=== PATIENT | female | born 1960 | race Caucasian/White ===

== ENCOUNTER 2021-06-22 10:25 | Observation (INO) ==
[2021-06-22] MEDS ORDERED: Ondansetron 4 MG/2 ML VIAL IVP ONE (10:48)
[2021-06-22] MEDS ORDERED: 0.9 % Sodium Chloride 1,000 ML IVC ONE ×2 (10:48→14:22)
[2021-06-22 11:19] LABS: Basophils % 0.3 %; Eosinophils % 0.2 %; Hematocrit 40.6 % (35.3-44.9); Hemoglobin 13.6 g/dL (11.5-15.4); Immature Granulocytes % 0.3 % (0-4); Lymphocytes # 1.8 K/mcL (0.6-4.6); Lymphocytes % 31.2 %; Mean Corpuscular HGB Conc 33.5 g/dL (31.6-35.5); Mean Corpuscular Hemoglobin 28.1 pg (28.0-33.3); Mean Corpuscular Volume 83.9 fL (83.0-100.0); Mean Platelet Volume 10.9 fL (9.4-12.4); Monocytes # 0.4 K/mcL (0.0-1.3); Monocytes % 6.2 %; Neutrophils # 3.6 K/mcL (1.6-8.9); Platelet Count 264 K/mcL (140-400); Red Blood Count 4.84 M/mcL (3.82-4.97); Red Cell Distribution Width 12.1 % (11.5-14.5); Segmented Neutrophils % 61.8 %; White Blood Count 5.8 K/mcL (4.3-11.1)
[2021-06-22 11:21] LABS: VBG HCO3 24 mEq/L (21-27); VBG PCO2 35 mmHg (41-51); VBG PH 7.44 pH Units (7.32-7.42); VBG PO2 53 mmHg (25-50)
[2021-06-22] MEDS ORDERED: Insulin Regular, Human 100 UNIT/ML SUBQ ONE (11:46)
[2021-06-22 11:50] LABS: Alanine Aminotransferase 15 Units/L (7-52); Albumin 3.6 g/dL (3.5-5.7); Alkaline Phosphatase 70 Units/L (34-104); Amylase 19 Units/L (29-103); Aspartate Amino Transferase 22 Units/L (13-39); BUN/Creatinine Ratio 23 (6-26); Bilirubin,Direct 0.2 mg/dL (0.0-0.2); Bilirubin,Indirect 0.4 mg/dL (0.0-1.0); Bilirubin,Total 0.6 mg/dL (0.3-1.0); Blood Urea Nitrogen 22 mg/dL (6-20); Calcium 8.8 mg/dL (8.6-10.3); Carbon Dioxide 23 mEq/L (23-29); Chloride 90 mEq/L (98-107); Globulin 3.6 g/dL (2.4-3.5); Glucose 544 mg/dL (70-105); Lipase 12 Units/L (11-82); Osmolality,Calculated 304 (280-300); Potassium 3.7 mEq/L (3.5-5.1); Sodium 133 mEq/L (136-145); Total Protein 7.2 g/dL (6.4-8.9); eGFR For African Americans > 60 (> 60); eGFR For Non-African Americans 59 (> 60)
[2021-06-22] MEDS: 0.9 % Sodium Chloride 1,000 ML IVC SCH (13:16)
[2021-06-22] MEDS ORDERED: Mag Hydrox/Al Hydrox/Simeth 30 ML UDC PO PRN (14:17)
[2021-06-22] MEDS ORDERED: MOM Conc 10 ML UD.LIQ PO PRN (14:17)
[2021-06-22] MEDS ORDERED: Ondansetron 4 MG/2 ML VIAL IVP PRN (14:17)
[2021-06-22] MEDS ORDERED: Naloxone 0.4 MG/ML INJ IVP PRN (14:17)
[2021-06-22] MEDS ORDERED: D5% in Water 1,000 ML IVC PRN (14:19)
[2021-06-22] MEDS ORDERED: Dextrose Gel 15 GM/37.5 ML TUBE PO PRN ×2 (14:19)
[2021-06-22] MEDS ORDERED: *HR* Dextrose 50 % in Water (Syg) 50 ML SYRINGE IVP PRN (14:19)
[2021-06-22] MEDS ORDERED: Benzonatate 100 MG CAPSULE PO PRN (14:21)
[2021-06-22] MEDS ORDERED: Insulin LISPRO 300 UNITS/3 ML VIAL SUBQ ONE (15:12)
[2021-06-22] MEDS: Insulin LISPRO 300 UNITS/3 ML VIAL SUBQ SCH ×2 (16:32→20:38)
[2021-06-22 18:46] LABS: BUN/Creatinine Ratio 24 (6-26); Blood Urea Nitrogen 17 mg/dL (6-20); Calcium 7.7 mg/dL (8.6-10.3); Carbon Dioxide 28 mEq/L (23-29); Chloride 103 mEq/L (98-107); Glucose 113 mg/dL (70-105); Osmolality,Calculated 292 (280-300); Potassium 2.8 mEq/L (3.5-5.1); Sodium 140 mEq/L (136-145); eGFR For African Americans > 60 (> 60); eGFR For Non-African Americans > 60 (> 60)
[2021-06-22] MEDS: Insulin DETEMIR 100 UNIT/ML X5UNITS SUBQ SCH (20:39)
[2021-06-23] MEDS: 0.9 % Sodium Chloride 1,000 ML IVC SCH ×2 (02:02→07:33)
[2021-06-23] MEDS: *HR* Enoxaparin 40 MG/0.4 ML SYRINGE SQ SCH (05:28)
[2021-06-23] MEDS: Acetaminophen 325 MG TABLET PO PRN ×2 (05:35→21:15)
[2021-06-23] MEDS: Insulin LISPRO 300 UNITS/3 ML VIAL SUBQ SCH ×4 (07:50→21:12)
[2021-06-23 08:44] LABS: Basophils % 0.2 %; Eosinophils % 0.3 %; Hematocrit 32.3 % (35.3-44.9); Hemoglobin 10.9 g/dL (11.5-15.4); Immature Granulocytes % 0.3 % (0-4); Lymphocytes # 2.4 K/mcL (0.6-4.6); Lymphocytes % 36.9 %; Mean Corpuscular HGB Conc 33.7 g/dL (31.6-35.5); Mean Corpuscular Hemoglobin 28.4 pg (28.0-33.3); Mean Corpuscular Volume 84.1 fL (83.0-100.0); Mean Platelet Volume 10.8 fL (9.4-12.4); Monocytes # 0.4 K/mcL (0.0-1.3); Monocytes % 6.6 %; Neutrophils # 3.7 K/mcL (1.6-8.9); Platelet Count 205 K/mcL (140-400); Red Blood Count 3.84 M/mcL (3.82-4.97); Red Cell Distribution Width 12.2 % (11.5-14.5); Segmented Neutrophils % 55.7 %; White Blood Count 6.6 K/mcL (4.3-11.1)
[2021-06-23 08:58] LABS: BUN/Creatinine Ratio 21 (6-26); Blood Urea Nitrogen 12 mg/dL (6-20); Calcium 7.3 mg/dL (8.6-10.3); Carbon Dioxide 25 mEq/L (23-29); Chloride 104 mEq/L (98-107); Glucose 207 mg/dL (70-105); Osmolality,Calculated 292 (280-300); Sodium 138 mEq/L (136-145); eGFR For African Americans > 60 (> 60); eGFR For Non-African Americans > 60 (> 60)
[2021-06-23] MEDS: lisinopriL 20 MG TABLET PO SCH (09:06)
[2021-06-23 10:12] LABS: Estimated Average Glucose 367 mg/dl; Hemoglobin A1C 14.4 %
[2021-06-23] MEDS: Pregabalin 25 MG CAPSULE PO SCH ×2 (13:02→21:15)
[2021-06-23] MEDS: Magnesium Oxide 400 MG TABLET PO SCH (13:03)
[2021-06-23 13:39] LABS: Bilirubin,Urine Negative (Negative); Blood,Urine Negative (Negative); Clarity,Urine Cloudy (Clear); Color,Urine Yellow (Yellow); Glucose,Urine (UA) 500 mg/dL (Normal); Ketones,Urine 15 mg/dL (Negative); Leukocyte Esterase,Urine Negative (Negative); Nitrite,Urine Negative (Negative); Protein,Urine 30 mg/dL (Neg-Trace); Urobilinogen,Urine Normal (Normal)
[2021-06-23 13:49] LABS: Bacteria,Urine Many per hpf (None-Few); Budding Yeast,Urine Many per hpf (None Seen); Squamous Epithelial Cell,Urine Few per hpf (None-Few); WBC,Urine 0-3 per hpf (0-3)
[2021-06-23 18:15] LABS: BUN/Creatinine Ratio 16 (6-26); Blood Urea Nitrogen 11 mg/dL (6-20); Calcium 7.4 mg/dL (8.6-10.3); Carbon Dioxide 24 mEq/L (23-29); Chloride 107 mEq/L (98-107); Glucose 220 mg/dL (70-105); Osmolality,Calculated 294 (280-300); Potassium 3.5 mEq/L (3.5-5.1); Sodium 139 mEq/L (136-145); eGFR For African Americans > 60 (> 60); eGFR For Non-African Americans > 60 (> 60)
[2021-06-23] MEDS: Fluconazole 100 MG TABLET PO SCH (18:44)
[2021-06-23] MEDS: Insulin DETEMIR 100 UNIT/ML X5UNITS SUBQ SCH (21:14)
[2021-06-23] MEDS ORDERED: Ketorolac 30 MG/ML VIAL IVP ONE (23:45)
[2021-06-24] MEDS: *HR* Enoxaparin 40 MG/0.4 ML SYRINGE SQ SCH (05:59)
[2021-06-24 07:50] LABS: Basophils % 0.3 %; Eosinophils % 0.6 %; Hematocrit 31.4 % (35.3-44.9); Hemoglobin 10.3 g/dL (11.5-15.4); Immature Granulocytes % 0.3 % (0-4); Lymphocytes # 2.5 K/mcL (0.6-4.6); Lymphocytes % 37.7 %; Mean Corpuscular HGB Conc 32.8 g/dL (31.6-35.5); Mean Corpuscular Hemoglobin 27.9 pg (28.0-33.3); Mean Corpuscular Volume 85.1 fL (83.0-100.0); Mean Platelet Volume 10.6 fL (9.4-12.4); Monocytes # 0.5 K/mcL (0.0-1.3); Monocytes % 6.7 %; Neutrophils # 3.7 K/mcL (1.6-8.9); Platelet Count 206 K/mcL (140-400); Red Blood Count 3.69 M/mcL (3.82-4.97); Red Cell Distribution Width 12.3 % (11.5-14.5); Segmented Neutrophils % 54.4 %; White Blood Count 6.7 K/mcL (4.3-11.1)
[2021-06-24] MEDS: Magnesium Oxide 400 MG TABLET PO SCH (09:16)
[2021-06-24] MEDS: Pregabalin 25 MG CAPSULE PO SCH ×2 (09:17→21:32)
[2021-06-24] MEDS: lisinopriL 20 MG TABLET PO SCH (09:17)
[2021-06-24] MEDS: Fluconazole 100 MG TABLET PO SCH (09:19)
[2021-06-24] MEDS: Insulin LISPRO 300 UNITS/3 ML VIAL SUBQ SCH ×4 (10:22→21:33)
[2021-06-24 10:49] LABS: BUN/Creatinine Ratio 19 (6-26); Blood Urea Nitrogen 13 mg/dL (6-20); Calcium 7.7 mg/dL (8.6-10.3); Carbon Dioxide 29 mEq/L (23-29); Chloride 108 mEq/L (98-107); Glucose 80 mg/dL (70-105); Osmolality,Calculated 289 (280-300); Potassium 3.8 mEq/L (3.5-5.1); Sodium 140 mEq/L (136-145); eGFR For African Americans > 60 (> 60); eGFR For Non-African Americans > 60 (> 60)
[2021-06-24] MEDS ORDERED: Dextrose Gel 15 GM/37.5 ML TUBE PO PRN ×2 (19:16)
[2021-06-24] MEDS ORDERED: D5% in Water 1,000 ML IVC PRN (19:16)
[2021-06-24] MEDS ORDERED: *HR* Dextrose 50 % in Water (Syg) 50 ML SYRINGE IVP PRN (19:16)
[2021-06-24] MEDS ORDERED: Insulin DETEMIR 100 UNIT/ML X5UNITS SUBQ SCH (21:00)
[2021-06-24] MEDS: Acetaminophen 325 MG TABLET PO PRN (21:32)
[2021-06-25] MEDS: Acetaminophen 325 MG TABLET PO PRN (03:28)
[2021-06-25] MEDS: *HR* Enoxaparin 40 MG/0.4 ML SYRINGE SQ SCH (04:19)
[2021-06-25] MEDS ORDERED: Insulin LISPRO 300 UNITS/3 ML VIAL SUBQ SCH (07:30)
[2021-06-25 07:40] LABS: Basophils % 0.3 %; Eosinophils % 0.6 %; Hematocrit 32.5 % (35.3-44.9); Hemoglobin 10.7 g/dL (11.5-15.4); Immature Granulocytes % 0.6 % (0-4); Lymphocytes # 2.5 K/mcL (0.6-4.6); Lymphocytes % 38.1 %; Mean Corpuscular HGB Conc 32.9 g/dL (31.6-35.5); Mean Corpuscular Volume 85.1 fL (83.0-100.0); Mean Platelet Volume 10.5 fL (9.4-12.4); Monocytes # 0.6 K/mcL (0.0-1.3); Monocytes % 8.3 %; Neutrophils # 3.4 K/mcL (1.6-8.9); Platelet Count 219 K/mcL (140-400); Red Blood Count 3.82 M/mcL (3.82-4.97); Red Cell Distribution Width 12.3 % (11.5-14.5); Segmented Neutrophils % 52.1 %; White Blood Count 6.6 K/mcL (4.3-11.1)
[2021-06-25 07:55] LABS: BUN/Creatinine Ratio 20 (6-26); Blood Urea Nitrogen 13 mg/dL (6-20); Calcium 7.9 mg/dL (8.6-10.3); Carbon Dioxide 28 mEq/L (23-29); Chloride 106 mEq/L (98-107); Glucose 158 mg/dL (70-105); Magnesium 1.3 mg/dL (1.6-2.6); Osmolality,Calculated 287 (280-300); Sodium 137 mEq/L (136-145); eGFR For African Americans > 60 (> 60); eGFR For Non-African Americans > 60 (> 60)
[2021-06-25 08:11] VITALS: BP 120/71; PULSE 73; RESP 18; TEMP 98.2; O2SAT 98
[2021-06-25] MEDS: Pregabalin 25 MG CAPSULE PO SCH (08:46)
[2021-06-25] MEDS: Magnesium Oxide 400 MG TABLET PO SCH (08:46)
[2021-06-25] MEDS: lisinopriL 20 MG TABLET PO SCH (08:46)
[2021-06-25] MEDS: Fluconazole 100 MG TABLET PO SCH (08:46)
== END 2021-06-25 11:42 | disposition home or self-care (01) ==
LOC: INPPIK 10:25 → EMEROOPIK 10:25 → INPPIK 14:56
PROVIDERS: ADMIT Registered Nurse Emergency; ATTEND Registered Nurse Emergency

== ENCOUNTER 2021-08-08 17:49 | Inpatient (IN) ==
[2021-08-08] MEDS ORDERED: D5% in Water 1,000 ML IVC PRN (18:09)
[2021-08-08] MEDS ORDERED: Dextrose 4 GM Chewable Tablets PO PRN ×2 (18:09)
[2021-08-08] MEDS ORDERED: *HR* Dextrose 50 % in Water (Syg) 50 ML SYRINGE IVP PRN (18:09)
[2021-08-08] MEDS ORDERED: Insulin DETEMIR 100 UNIT/ML X5UNITS SUBQ SCH (21:00)
[2021-08-08] MEDS ORDERED: Insulin DETEMIR 100 UNIT/ML per UNIT SUBQ ONE (21:45)
[2021-08-08] MEDS: *HR* HYDROcodone/Acet 5/325 mg TABLET PO PRN (21:51)
[2021-08-09] MEDS ORDERED: *HR* OxyCODONE Immed Rel 5 MG TABLET PO ONE (00:05)
[2021-08-09] MEDS: Ondansetron 4 MG/2 ML VIAL IVP PRN (06:13)
[2021-08-09 08:18] LABS: Basophils # 0.1 K/mcL (0.0-0.2); Basophils % 0.8 %; Eosinophils # 0.1 K/mcL (0.0-0.6); Eosinophils % 0.9 %; Hematocrit 27.6 % (35.3-44.9); Hemoglobin 8.5 g/dL (11.5-15.4); Immature Granulocytes % 0.5 % (0-4); Lymphocytes # 1.7 K/mcL (0.6-4.6); Lymphocytes % 25.2 %; Mean Corpuscular HGB Conc 30.8 g/dL (31.6-35.5); Mean Corpuscular Hemoglobin 27.4 pg (28.0-33.3); Monocytes # 0.4 K/mcL (0.0-1.3); Monocytes % 6.2 %; Neutrophils # 4.4 K/mcL (1.6-8.9); Platelet Count 432 K/mcL (140-400); Red Cell Distribution Width 16.9 % (11.5-14.5); Segmented Neutrophils % 66.4 %; White Blood Count 6.6 K/mcL (4.3-11.1)
[2021-08-09 08:43] LABS: INR 1.2; Prothrombin Time 13.8 Seconds (9.4-12.1)
[2021-08-09] MEDS: *HR* HYDROcodone/Acet 5/325 mg TABLET PO PRN ×2 (08:45→17:25)
[2021-08-09] MEDS ORDERED: *HR* Metformin 500 MG TABLET PO SCH (09:00)
[2021-08-09] MEDS: carvediloL 6.25 MG TABLET PO SCH ×2 (09:24→17:24)
[2021-08-09] MEDS: Insulin LISPRO 300 UNITS/3 ML VIAL SUBQ SCH ×3 (09:28→16:16)
[2021-08-09] MEDS: lisinopriL 10 MG TABLET PO SCH (09:30)
[2021-08-09] MEDS: Aspirin 81 MG TAB.CHEW PO SCH (09:30)
[2021-08-09] MEDS: Insulin DETEMIR 100 UNIT/ML X5UNITS SUBQ SCH ×2 (09:31→20:47)
[2021-08-09] MEDS: *HR* OxyCODONE Immed Rel 5 MG TABLET PO PRN ×2 (12:16→20:47)
[2021-08-09 13:38] LABS: BUN/Creatinine Ratio 23 (6-26); Blood Urea Nitrogen 11 mg/dL (6-20); Calcium 7.8 mg/dL (8.6-10.3); Carbon Dioxide 25 mEq/L (23-29); Chloride 101 mEq/L (98-107); Glucose 216 mg/dL (70-105); Osmolality,Calculated 290 (280-300); Potassium 3.7 mEq/L (3.5-5.1); Sodium 137 mEq/L (136-145); eGFR For African Americans > 60 (> 60); eGFR For Non-African Americans > 60 (> 60)
[2021-08-09] MEDS: *HR* Heparin 5,000 UNIT/ML VIAL SQ SCH (17:24)
[2021-08-09] MEDS: *HR* Metformin 500 MG TABLET PO SCH (17:24)
[2021-08-09] MEDS: Gabapentin 100 MG CAPSULE PO SCH (20:46)
[2021-08-09] MEDS ORDERED: Gabapentin 100 MG CAPSULE PO SCH (21:00)
[2021-08-10] MEDS: Ondansetron 4 MG/2 ML VIAL IVP PRN (03:47)
[2021-08-10] MEDS: *HR* HYDROcodone/Acet 5/325 mg TABLET PO PRN ×3 (05:08→20:50)
[2021-08-10] MEDS: *HR* Heparin 5,000 UNIT/ML VIAL SQ SCH ×2 (05:10→16:59)
[2021-08-10] MEDS: Gabapentin 100 MG CAPSULE PO SCH ×2 (08:21→20:09)
[2021-08-10] MEDS: Aspirin 81 MG TAB.CHEW PO SCH (08:21)
[2021-08-10] MEDS: lisinopriL 10 MG TABLET PO SCH (08:21)
[2021-08-10] MEDS: *HR* Metformin 500 MG TABLET PO SCH ×2 (08:21→16:59)
[2021-08-10] MEDS: carvediloL 6.25 MG TABLET PO SCH ×2 (08:21→16:59)
[2021-08-10] MEDS: Insulin LISPRO 300 UNITS/3 ML VIAL SUBQ SCH ×3 (08:22→17:00)
[2021-08-10 09:19] LABS: % Iron Saturation 18 % (15-50); Iron 33 mcg/dL (50-170); Transferrin 131 mg/dL (203-362)
[2021-08-10 09:39] LABS: Ferritin 356 ng/mL (10-120)
[2021-08-10] MEDS: Insulin DETEMIR 100 UNIT/ML X5UNITS SUBQ SCH ×2 (10:04→20:10)
[2021-08-10] MEDS: *HR* OxyCODONE Immed Rel 5 MG TABLET PO PRN (17:11)
[2021-08-11] MEDS: *HR* Heparin 5,000 UNIT/ML VIAL SQ SCH ×2 (05:12→17:10)
[2021-08-11] MEDS: *HR* OxyCODONE Immed Rel 5 MG TABLET PO PRN ×2 (05:12→20:26)
[2021-08-11] MEDS: Insulin DETEMIR 100 UNIT/ML X5UNITS SUBQ SCH ×2 (07:52→20:25)
[2021-08-11] MEDS: Insulin LISPRO 300 UNITS/3 ML VIAL SUBQ SCH ×3 (07:52→17:11)
[2021-08-11] MEDS: carvediloL 6.25 MG TABLET PO SCH ×2 (07:53→17:09)
[2021-08-11] MEDS: Gabapentin 100 MG CAPSULE PO SCH ×3 (07:54→20:25)
[2021-08-11] MEDS: lisinopriL 10 MG TABLET PO SCH (07:54)
[2021-08-11] MEDS: Aspirin 81 MG TAB.CHEW PO SCH (07:54)
[2021-08-11] MEDS: *HR* Metformin 500 MG TABLET PO SCH ×2 (07:54→17:10)
[2021-08-11] MEDS: *HR* HYDROcodone/Acet 5/325 mg TABLET PO PRN ×2 (07:56→22:32)
[2021-08-12] MEDS: *HR* OxyCODONE Immed Rel 5 MG TABLET PO PRN ×3 (02:28→20:35)
[2021-08-12] MEDS: *HR* HYDROcodone/Acet 5/325 mg TABLET PO PRN (05:44)
[2021-08-12] MEDS: *HR* Heparin 5,000 UNIT/ML VIAL SQ SCH ×2 (05:44→17:03)
[2021-08-12 08:40] LABS: Hematocrit 28.1 % (35.3-44.9); Hemoglobin 8.5 g/dL (11.5-15.4); Mean Corpuscular HGB Conc 30.2 g/dL (31.6-35.5); Mean Corpuscular Hemoglobin 27.9 pg (28.0-33.3); Mean Corpuscular Volume 92.1 fL (83.0-100.0); Mean Platelet Volume 8.8 fL (9.4-12.4); Platelet Count 361 K/mcL (140-400); Red Blood Count 3.05 M/mcL (3.82-4.97); Red Cell Distribution Width 18.2 % (11.5-14.5)
[2021-08-12] MEDS: Gabapentin 100 MG CAPSULE PO SCH ×3 (08:51→20:35)
[2021-08-12] MEDS: *HR* Metformin 500 MG TABLET PO SCH ×2 (08:51→17:03)
[2021-08-12] MEDS: Insulin LISPRO 300 UNITS/3 ML VIAL SUBQ SCH ×3 (08:51→16:44)
[2021-08-12] MEDS: Aspirin 81 MG TAB.CHEW PO SCH (08:51)
[2021-08-12] MEDS: carvediloL 6.25 MG TABLET PO SCH ×2 (08:51→17:03)
[2021-08-12] MEDS: lisinopriL 10 MG TABLET PO SCH (08:51)
[2021-08-12] MEDS: Insulin DETEMIR 100 UNIT/ML X5UNITS SUBQ SCH ×2 (09:04→20:38)
[2021-08-12 09:15] LABS: BUN/Creatinine Ratio 25 (6-26); Blood Urea Nitrogen 12 mg/dL (6-20); Calcium 8.1 mg/dL (8.6-10.3); Carbon Dioxide 34 mEq/L (23-29); Chloride 101 mEq/L (98-107); Glucose 118 mg/dL (70-105); Osmolality,Calculated 287 (280-300); Potassium 4.2 mEq/L (3.5-5.1); Sodium 138 mEq/L (136-145); eGFR For African Americans > 60 (> 60); eGFR For Non-African Americans > 60 (> 60)
[2021-08-12] MEDS: Sennosides/Docusate Sodium TABLET PO SCH (20:35)
[2021-08-13] MEDS: Ondansetron 4 MG/2 ML VIAL IVP PRN ×2 (04:51→17:20)
[2021-08-13] MEDS: *HR* Heparin 5,000 UNIT/ML VIAL SQ SCH ×2 (05:41→17:19)
[2021-08-13] MEDS: Insulin LISPRO 300 UNITS/3 ML VIAL SUBQ SCH ×3 (07:54→17:20)
[2021-08-13] MEDS: Sennosides/Docusate Sodium TABLET PO SCH ×2 (07:55→21:14)
[2021-08-13] MEDS: lisinopriL 10 MG TABLET PO SCH (07:55)
[2021-08-13] MEDS: *HR* Metformin 500 MG TABLET PO SCH ×2 (07:56→17:24)
[2021-08-13] MEDS: Gabapentin 100 MG CAPSULE PO SCH ×4 (07:56→22:56)
[2021-08-13] MEDS: carvediloL 6.25 MG TABLET PO SCH ×2 (07:56→17:25)
[2021-08-13] MEDS: Aspirin 81 MG TAB.CHEW PO SCH (07:56)
[2021-08-13] MEDS: *HR* HYDROcodone/Acet 5/325 mg TABLET PO PRN ×2 (08:03→22:55)
[2021-08-13] MEDS: Insulin DETEMIR 100 UNIT/ML X5UNITS SUBQ SCH (09:40)
[2021-08-13] MEDS ORDERED: Furosemide 20 MG TABLET PO ONE (14:11)
[2021-08-13] MEDS ORDERED: Isovue-370 500 ML BOTTLE IVP ONE (17:46)
[2021-08-13 18:22] LABS: ABG Base Excess 5 mEq/L (-2 to 3); ABG HCO3 30 mEq/L (21-27); ABG Oxygen Saturation 91 % (95-98); ABG PCO2 44 mmHg (35-45); ABG PH 7.43 pH Units (7.32-7.45); ABG PO2 58 mmHg (85-104); ABG TCO2 31 mEq/L (20-26)
[2021-08-13] MEDS ORDERED: *HR* Heparin 5,000 UNIT/ML VIAL IVP PRN ×2 (19:59)
[2021-08-13] MEDS ORDERED: *HR* Heparin 5,000 UNIT/ML VIAL IVP ONE (19:59)
[2021-08-13] MEDS: Heparin 25,000UNIT/250ML 1/2NS 25,000 UNIT/250 ML IV.SOLN IVC SCH (21:00)
[2021-08-13 21:06] LABS: Hematocrit 28.2 % (35.3-44.9); Hemoglobin 8.4 g/dL (11.5-15.4); Mean Corpuscular HGB Conc 29.8 g/dL (31.6-35.5); Mean Corpuscular Hemoglobin 27.1 pg (28.0-33.3); Platelet Count 351 K/mcL (140-400); White Blood Count 6.3 K/mcL (4.3-11.1)
[2021-08-13 21:13] LABS: INR 1.1; Prothrombin Time 12.3 Seconds (9.4-12.1)
[2021-08-13 21:25] LABS: Heparin anti-factor XA UFH < 0.04 IU/mL (0.30-0.70)
[2021-08-14] MEDS: *HR* Heparin 5,000 UNIT/ML VIAL SQ SCH (03:49)
[2021-08-14] MEDS: *HR* HYDROcodone/Acet 5/325 mg TABLET PO PRN ×2 (05:10→20:12)
[2021-08-14] MEDS: Insulin LISPRO 300 UNITS/3 ML VIAL SUBQ SCH ×3 (08:50→16:38)
[2021-08-14] MEDS: Aspirin 81 MG TAB.CHEW PO SCH (08:51)
[2021-08-14] MEDS: carvediloL 6.25 MG TABLET PO SCH ×2 (08:51→16:55)
[2021-08-14] MEDS: lisinopriL 10 MG TABLET PO SCH (08:52)
[2021-08-14] MEDS: Insulin DETEMIR 100 UNIT/ML X5UNITS SUBQ SCH (08:52)
[2021-08-14] MEDS: Sennosides/Docusate Sodium TABLET PO SCH ×2 (08:52→20:12)
[2021-08-14] MEDS: Gabapentin 100 MG CAPSULE PO SCH ×3 (08:52→20:12)
[2021-08-14 09:48] LABS: Hematocrit 27.1 % (35.3-44.9); Mean Corpuscular HGB Conc 29.5 g/dL (31.6-35.5); Mean Corpuscular Hemoglobin 27.2 pg (28.0-33.3); Mean Corpuscular Volume 92.2 fL (83.0-100.0); Mean Platelet Volume 9.4 fL (9.4-12.4); Platelet Count 344 K/mcL (140-400); Red Blood Count 2.94 M/mcL (3.82-4.97); Red Cell Distribution Width 18.1 % (11.5-14.5); White Blood Count 6.8 K/mcL (4.3-11.1)
[2021-08-14] MEDS: Ondansetron 4 MG/2 ML VIAL IVP PRN (14:26)
[2021-08-14] MEDS: Heparin 25,000UNIT/250ML 1/2NS 25,000 UNIT/250 ML IV.SOLN IVC SCH (22:04)
[2021-08-15 04:12] LABS: Mean Corpuscular HGB Conc 29.6 g/dL (31.6-35.5); Mean Corpuscular Hemoglobin 27.6 pg (28.0-33.3); Mean Corpuscular Volume 93.1 fL (83.0-100.0); Mean Platelet Volume 9.2 fL (9.4-12.4); Platelet Count 358 K/mcL (140-400); Red Cell Distribution Width 18.2 % (11.5-14.5); White Blood Count 5.2 K/mcL (4.3-11.1)
[2021-08-15] MEDS: lisinopriL 10 MG TABLET PO SCH (08:17)
[2021-08-15] MEDS: Sennosides/Docusate Sodium TABLET PO SCH ×2 (08:17→20:41)
[2021-08-15] MEDS: Aspirin 81 MG TAB.CHEW PO SCH (08:17)
[2021-08-15] MEDS: Insulin LISPRO 300 UNITS/3 ML VIAL SUBQ SCH ×3 (08:18→17:13)
[2021-08-15] MEDS: carvediloL 6.25 MG TABLET PO SCH ×2 (08:18→17:13)
[2021-08-15] MEDS: Gabapentin 100 MG CAPSULE PO SCH ×3 (08:18→20:41)
[2021-08-15] MEDS: Insulin DETEMIR 100 UNIT/ML X5UNITS SUBQ SCH (08:19)
[2021-08-15] MEDS: *HR* HYDROcodone/Acet 5/325 mg TABLET PO PRN (14:15)
[2021-08-15] MEDS: *HR* LORazepam 0.5 MG TABLET PO PRN ×2 (15:16→20:41)
[2021-08-15] MEDS: Apixaban 5 MG TABLET PO SCH (20:41)
[2021-08-15] MEDS: Heparin 25,000UNIT/250ML 1/2NS 25,000 UNIT/250 ML IV.SOLN IVC SCH (20:57)
[2021-08-16] MEDS ORDERED: Morphine Sulfate 2 MG/ML SYRINGE IVP ONE (03:00)
[2021-08-16 06:25] LABS: Hematocrit 28.5 % (35.3-44.9); Hemoglobin 8.4 g/dL (11.5-15.4); Mean Corpuscular HGB Conc 29.5 g/dL (31.6-35.5); Mean Corpuscular Hemoglobin 27.9 pg (28.0-33.3); Mean Corpuscular Volume 94.7 fL (83.0-100.0); Mean Platelet Volume 9.3 fL (9.4-12.4); Platelet Count 403 K/mcL (140-400); Red Blood Count 3.01 M/mcL (3.82-4.97); White Blood Count 7.4 K/mcL (4.3-11.1)
[2021-08-16] MEDS: *HR* LORazepam 0.5 MG TABLET PO PRN ×2 (09:14→18:47)
[2021-08-16] MEDS: Aspirin 81 MG TAB.CHEW PO SCH (09:15)
[2021-08-16] MEDS: Apixaban 5 MG TABLET PO SCH ×2 (09:15→20:48)
[2021-08-16] MEDS: Gabapentin 100 MG CAPSULE PO SCH ×3 (09:15→20:48)
[2021-08-16] MEDS: carvediloL 6.25 MG TABLET PO SCH ×2 (09:16→17:03)
[2021-08-16] MEDS: lisinopriL 10 MG TABLET PO SCH (09:16)
[2021-08-16] MEDS: Sennosides/Docusate Sodium TABLET PO SCH ×2 (09:16→20:48)
[2021-08-16] MEDS: Insulin LISPRO 300 UNITS/3 ML VIAL SUBQ SCH ×3 (09:16→16:47)
[2021-08-16] MEDS: Insulin DETEMIR 100 UNIT/ML X5UNITS SUBQ SCH (10:20)
[2021-08-16 10:55] LABS: Bilirubin,Urine Negative (Negative); Blood,Urine Trace-intact (Negative); Clarity,Urine Clear (Clear); Color,Urine Yellow (Yellow); Glucose,Urine (UA) 100 mg/dL (Normal); Ketones,Urine Negative (Negative); Leukocyte Esterase,Urine Negative (Negative); Nitrite,Urine Negative (Negative); PH,Urine 8.5 pH Units (5.0-8.0); Protein,Urine Negative (Neg-Trace); Specific Gravity,Urine 1.015 (1.010-1.025); Urobilinogen,Urine Normal (Normal)
[2021-08-16 11:46] LABS: RBC,Urine 0-3 per hpf (0-3); Squamous Epithelial Cell,Urine Few per hpf (None-Few); WBC,Urine 0-3 per hpf (0-3)
[2021-08-16] MEDS: *HR* HYDROcodone/Acet 5/325 mg TABLET PO PRN (14:02)
[2021-08-17] MEDS: *HR* LORazepam 0.5 MG TABLET PO PRN (03:31)
[2021-08-17 07:20] LABS: Hematocrit 28.8 % (35.3-44.9); Hemoglobin 8.5 g/dL (11.5-15.4); Mean Corpuscular HGB Conc 29.5 g/dL (31.6-35.5); Mean Corpuscular Hemoglobin 27.4 pg (28.0-33.3); Mean Corpuscular Volume 92.9 fL (83.0-100.0); Mean Platelet Volume 9.3 fL (9.4-12.4); Platelet Count 381 K/mcL (140-400); Red Cell Distribution Width 17.7 % (11.5-14.5); White Blood Count 5.7 K/mcL (4.3-11.1)
[2021-08-17 07:49] LABS: BUN/Creatinine Ratio 21 (6-26); Blood Urea Nitrogen 9 mg/dL (6-20); Calcium 8.4 mg/dL (8.6-10.3); Carbon Dioxide 32 mEq/L (23-29); Chloride 98 mEq/L (98-107); Glucose 153 mg/dL (70-105); Osmolality,Calculated 284 (280-300); Potassium 4.4 mEq/L (3.5-5.1); Sodium 136 mEq/L (136-145); eGFR For African Americans > 60 (> 60); eGFR For Non-African Americans > 60 (> 60)
[2021-08-17] MEDS ORDERED: Furosemide 20 MG/2 ML VIAL IVP ONE (07:57)
[2021-08-17] MEDS: *HR* HYDROcodone/Acet 5/325 mg TABLET PO PRN (08:14)
[2021-08-17] MEDS: Sennosides/Docusate Sodium TABLET PO SCH ×2 (08:15→20:11)
[2021-08-17] MEDS: carvediloL 6.25 MG TABLET PO SCH ×2 (08:15→16:06)
[2021-08-17] MEDS: Apixaban 5 MG TABLET PO SCH ×2 (08:15→20:10)
[2021-08-17] MEDS: Gabapentin 100 MG CAPSULE PO SCH ×3 (08:15→20:10)
[2021-08-17] MEDS: Aspirin 81 MG TAB.CHEW PO SCH (08:15)
[2021-08-17] MEDS: lisinopriL 10 MG TABLET PO SCH (08:15)
[2021-08-17] MEDS: Insulin LISPRO 300 UNITS/3 ML VIAL SUBQ SCH ×3 (09:19→16:10)
[2021-08-17] MEDS: Insulin DETEMIR 100 UNIT/ML X5UNITS SUBQ SCH (09:40)
[2021-08-17 10:46] LABS: Adenovirus Not Detected (Not Detect); Bordetella Pertussis Not Detected (Not Detect); Chlamydophila pneumoniae Not Detected (Not Detect); Coronavirus 229E Not Detected (Not Detect); Coronavirus HKU1 Not Detected (Not Detect); Coronavirus NL63 Not Detected (Not Detect); Coronavirus OC43 Not Detected (Not Detect); Human Metapneumovirus Not Detected (Not Detect); Human Rhinovirus/Enterovirus Not Detected (Not Detect); Influenza A Subtype 2009 H1 Not Detected (Not Detect); Influenza B Not Detected (Not Detect); Mycoplasma pneumoniae Not Detected (Not Detect); Parainfluenza Virus 1 Not Detected (Not Detect); Parainfluenza Virus 2 Not Detected (Not Detect); Parainfluenza Virus 3 Not Detected (Not Detect); Parainfluenza Virus 4 Not Detected (Not Detect); Respiratory Syncytial Virus Not Detected (Not Detect); SARS-CoV-2 Not Detected (Not Detect)
[2021-08-17] MEDS ORDERED: Ipratropium/Albuterol Neb 3 ML IH PRN (14:43)
[2021-08-17] MEDS: Furosemide 20 MG/2 ML VIAL IVP SCH (16:29)
[2021-08-17] MEDS: *HR* OxyCODONE Immed Rel 5 MG TABLET PO PRN (20:11)
[2021-08-18] MEDS: *HR* LORazepam 0.5 MG TABLET PO PRN ×2 (06:49→17:43)
[2021-08-18 07:34] LABS: Basophils % 0.8 %; Eosinophils # 0.2 K/mcL (0.0-0.6); Eosinophils % 3.2 %; Hematocrit 29.2 % (35.3-44.9); Hemoglobin 8.8 g/dL (11.5-15.4); Immature Granulocytes % 0.4 % (0-4); Lymphocytes # 1.6 K/mcL (0.6-4.6); Lymphocytes % 30.7 %; Mean Corpuscular HGB Conc 30.1 g/dL (31.6-35.5); Mean Corpuscular Hemoglobin 27.5 pg (28.0-33.3); Mean Corpuscular Volume 91.3 fL (83.0-100.0); Mean Platelet Volume 9.4 fL (9.4-12.4); Monocytes # 0.5 K/mcL (0.0-1.3); Monocytes % 8.8 %; Platelet Count 422 K/mcL (140-400); Red Cell Distribution Width 17.3 % (11.5-14.5); Segmented Neutrophils % 56.1 %; White Blood Count 5.3 K/mcL (4.3-11.1)
[2021-08-18] MEDS: carvediloL 6.25 MG TABLET PO SCH ×2 (07:50→16:33)
[2021-08-18] MEDS: Aspirin 81 MG TAB.CHEW PO SCH (07:51)
[2021-08-18] MEDS: Apixaban 5 MG TABLET PO SCH ×2 (07:51→21:31)
[2021-08-18] MEDS: lisinopriL 10 MG TABLET PO SCH (07:51)
[2021-08-18] MEDS: Gabapentin 100 MG CAPSULE PO SCH ×3 (07:51→21:31)
[2021-08-18] MEDS: Sennosides/Docusate Sodium TABLET PO SCH ×2 (07:51→21:31)
[2021-08-18 07:53] LABS: BUN/Creatinine Ratio 18 (6-26); Blood Urea Nitrogen 9 mg/dL (6-20); Calcium 8.4 mg/dL (8.6-10.3); Carbon Dioxide 36 mEq/L (23-29); Chloride 96 mEq/L (98-107); Glucose 197 mg/dL (70-105); Osmolality,Calculated 288 (280-300); Sodium 137 mEq/L (136-145); eGFR For African Americans > 60 (> 60); eGFR For Non-African Americans > 60 (> 60)
[2021-08-18] MEDS: Insulin LISPRO 300 UNITS/3 ML VIAL SUBQ SCH ×3 (08:40→16:33)
[2021-08-18] MEDS: Insulin DETEMIR 100 UNIT/ML X5UNITS SUBQ SCH (08:40)
[2021-08-18] MEDS: Furosemide 20 MG/2 ML VIAL IVP SCH (09:00)
[2021-08-18] MEDS: *HR* HYDROcodone/Acet 5/325 mg TABLET PO PRN (18:30)
[2021-08-19 08:56] LABS: Hematocrit 28.1 % (35.3-44.9); Hemoglobin 8.6 g/dL (11.5-15.4); Mean Corpuscular HGB Conc 30.6 g/dL (31.6-35.5); Mean Corpuscular Hemoglobin 27.8 pg (28.0-33.3); Mean Corpuscular Volume 90.9 fL (83.0-100.0); Mean Platelet Volume 9.1 fL (9.4-12.4); Platelet Count 429 K/mcL (140-400); Red Blood Count 3.09 M/mcL (3.82-4.97); Red Cell Distribution Width 17.2 % (11.5-14.5); White Blood Count 5.4 K/mcL (4.3-11.1)
[2021-08-19] MEDS: Insulin LISPRO 300 UNITS/3 ML VIAL SUBQ SCH ×3 (09:10→16:44)
[2021-08-19 09:11] LABS: BUN/Creatinine Ratio 19 (6-26); Blood Urea Nitrogen 9 mg/dL (6-20); Calcium 8.3 mg/dL (8.6-10.3); Carbon Dioxide 34 mEq/L (23-29); Chloride 97 mEq/L (98-107); Glucose 270 mg/dL (70-105); Osmolality,Calculated 290 (280-300); Potassium 3.8 mEq/L (3.5-5.1); Sodium 136 mEq/L (136-145); eGFR For African Americans > 60 (> 60); eGFR For Non-African Americans > 60 (> 60)
[2021-08-19] MEDS: Insulin DETEMIR 100 UNIT/ML X5UNITS SUBQ SCH (09:11)
[2021-08-19] MEDS: Aspirin 81 MG TAB.CHEW PO SCH (09:12)
[2021-08-19] MEDS: *HR* LORazepam 0.5 MG TABLET PO PRN (09:12)
[2021-08-19] MEDS: lisinopriL 10 MG TABLET PO SCH (09:13)
[2021-08-19] MEDS: Apixaban 5 MG TABLET PO SCH ×2 (09:13→21:47)
[2021-08-19] MEDS: carvediloL 6.25 MG TABLET PO SCH ×2 (09:13→16:44)
[2021-08-19] MEDS: Gabapentin 100 MG CAPSULE PO SCH ×3 (09:13→21:47)
[2021-08-19] MEDS: Sennosides/Docusate Sodium TABLET PO SCH ×2 (09:13→21:48)
[2021-08-19] MEDS: *HR* HYDROcodone/Acet 5/325 mg TABLET PO PRN (16:52)
[2021-08-19] MEDS ORDERED: Perflutren Lipid Microsphere 1.3 ML in 0.9 % Sodium Chloride 8.7 ML IVP PRN (17:08)
[2021-08-19] MEDS: *HR* OxyCODONE Immed Rel 5 MG TABLET PO PRN (21:47)
[2021-08-20] MEDS: lisinopriL 10 MG TABLET PO SCH (08:04)
[2021-08-20] MEDS: carvediloL 6.25 MG TABLET PO SCH ×2 (08:04→17:02)
[2021-08-20] MEDS: Sennosides/Docusate Sodium TABLET PO SCH ×2 (08:04→19:57)
[2021-08-20] MEDS: Gabapentin 100 MG CAPSULE PO SCH ×3 (08:05→19:57)
[2021-08-20] MEDS: Aspirin 81 MG TAB.CHEW PO SCH (08:05)
[2021-08-20] MEDS: Apixaban 5 MG TABLET PO SCH ×2 (08:05→19:57)
[2021-08-20] MEDS: Insulin LISPRO 300 UNITS/3 ML VIAL SUBQ SCH ×3 (08:05→17:01)
[2021-08-20 08:24] LABS: Basophils % 0.5 %; Eosinophils # 0.2 K/mcL (0.0-0.6); Eosinophils % 3.5 %; Hematocrit 28.1 % (35.3-44.9); Hemoglobin 8.4 g/dL (11.5-15.4); Immature Granulocytes % 0.3 % (0-4); Lymphocytes % 32.7 %; Mean Corpuscular HGB Conc 29.9 g/dL (31.6-35.5); Mean Corpuscular Hemoglobin 27.5 pg (28.0-33.3); Mean Corpuscular Volume 92.1 fL (83.0-100.0); Mean Platelet Volume 9.2 fL (9.4-12.4); Monocytes # 0.7 K/mcL (0.0-1.3); Monocytes % 11.5 %; Neutrophils # 3.1 K/mcL (1.6-8.9); Platelet Count 421 K/mcL (140-400); Red Blood Count 3.05 M/mcL (3.82-4.97); Red Cell Distribution Width 17.2 % (11.5-14.5); Segmented Neutrophils % 51.5 %
[2021-08-20] MEDS: Insulin DETEMIR 100 UNIT/ML X5UNITS SUBQ SCH (08:42)
[2021-08-20 09:07] LABS: BUN/Creatinine Ratio 19 (6-26); Blood Urea Nitrogen 9 mg/dL (6-20); Calcium 8.4 mg/dL (8.6-10.3); Carbon Dioxide 31 mEq/L (23-29); Chloride 100 mEq/L (98-107); Glucose 166 mg/dL (70-105); Osmolality,Calculated 288 (280-300); Sodium 138 mEq/L (136-145); eGFR For African Americans > 60 (> 60); eGFR For Non-African Americans > 60 (> 60)
[2021-08-20] MEDS: Budesonide/Formoterol 160/4.5 1 PUFF INH IH SCH ×2 (09:33→22:33)
[2021-08-20] MEDS: *HR* LORazepam 0.5 MG TABLET PO PRN (11:55)
[2021-08-20] MEDS: *HR* HYDROcodone/Acet 5/325 mg TABLET PO PRN (18:43)
[2021-08-21] MEDS: *HR* LORazepam 0.5 MG TABLET PO PRN ×2 (09:02→23:43)
[2021-08-21] MEDS: Gabapentin 100 MG CAPSULE PO SCH ×3 (09:06→19:57)
[2021-08-21] MEDS: Aspirin 81 MG TAB.CHEW PO SCH (09:06)
[2021-08-21] MEDS: carvediloL 6.25 MG TABLET PO SCH ×2 (09:07→18:42)
[2021-08-21] MEDS: Apixaban 5 MG TABLET PO SCH ×2 (09:07→19:56)
[2021-08-21] MEDS: Sennosides/Docusate Sodium TABLET PO SCH ×2 (09:08→19:57)
[2021-08-21] MEDS: lisinopriL 10 MG TABLET PO SCH (09:08)
[2021-08-21] MEDS: Insulin LISPRO 300 UNITS/3 ML VIAL SUBQ SCH ×3 (09:09→16:05)
[2021-08-21] MEDS: Insulin DETEMIR 100 UNIT/ML X5UNITS SUBQ SCH (09:09)
[2021-08-21] MEDS: Loratadine 10 MG TABLET PO SCH (09:40)
[2021-08-21] MEDS: Budesonide/Formoterol 160/4.5 1 PUFF INH IH SCH ×2 (09:46→22:47)
[2021-08-21] MEDS: *HR* OxyCODONE Immed Rel 5 MG TABLET PO PRN ×2 (11:44→23:42)
[2021-08-22] MEDS: Insulin LISPRO 300 UNITS/3 ML VIAL SUBQ SCH ×3 (08:21→16:42)
[2021-08-22] MEDS: Gabapentin 100 MG CAPSULE PO SCH ×3 (08:21→19:34)
[2021-08-22] MEDS: lisinopriL 10 MG TABLET PO SCH (08:22)
[2021-08-22] MEDS: Apixaban 5 MG TABLET PO SCH ×2 (08:22→22:35)
[2021-08-22] MEDS: Aspirin 81 MG TAB.CHEW PO SCH (08:22)
[2021-08-22] MEDS: carvediloL 6.25 MG TABLET PO SCH ×2 (08:22→16:46)
[2021-08-22] MEDS: Loratadine 10 MG TABLET PO SCH (08:23)
[2021-08-22] MEDS: Sennosides/Docusate Sodium TABLET PO SCH ×2 (08:23→19:33)
[2021-08-22] MEDS: Insulin DETEMIR 100 UNIT/ML X5UNITS SUBQ SCH (09:27)
[2021-08-22] MEDS: Budesonide/Formoterol 160/4.5 1 PUFF INH IH SCH ×2 (10:03→22:42)
[2021-08-22] MEDS: *HR* LORazepam 0.5 MG TABLET PO PRN (14:39)
[2021-08-22] MEDS: *HR* OxyCODONE Immed Rel 5 MG TABLET PO PRN (16:40)
[2021-08-22] MEDS: *HR* HYDROcodone/Acet 5/325 mg TABLET PO PRN (19:47)
[2021-08-23] MEDS: Insulin LISPRO 300 UNITS/3 ML VIAL SUBQ SCH ×3 (07:25→16:32)
[2021-08-23] MEDS: Sennosides/Docusate Sodium TABLET PO SCH ×2 (07:26→21:07)
[2021-08-23] MEDS: Apixaban 5 MG TABLET PO SCH ×2 (07:26→21:07)
[2021-08-23] MEDS: Aspirin 81 MG TAB.CHEW PO SCH (07:26)
[2021-08-23] MEDS: Gabapentin 100 MG CAPSULE PO SCH ×3 (07:26→21:07)
[2021-08-23] MEDS: carvediloL 6.25 MG TABLET PO SCH ×2 (07:26→16:32)
[2021-08-23] MEDS: lisinopriL 10 MG TABLET PO SCH (07:27)
[2021-08-23] MEDS: Ondansetron 4 MG/2 ML VIAL IVP PRN ×2 (07:27→21:06)
[2021-08-23] MEDS: Loratadine 10 MG TABLET PO SCH (07:27)
[2021-08-23] MEDS: *HR* HYDROcodone/Acet 5/325 mg TABLET PO PRN ×2 (07:36→16:38)
[2021-08-23] MEDS: Budesonide/Formoterol 160/4.5 1 PUFF INH IH SCH ×2 (08:58→21:31)
[2021-08-23] MEDS: Insulin DETEMIR 100 UNIT/ML X5UNITS SUBQ SCH (09:11)
[2021-08-23] MEDS: *HR* LORazepam 0.5 MG TABLET PO PRN (21:07)
[2021-08-24] MEDS: Budesonide/Formoterol 160/4.5 1 PUFF INH IH SCH ×2 (09:29→22:18)
[2021-08-24] MEDS: lisinopriL 10 MG TABLET PO SCH (10:07)
[2021-08-24] MEDS: Sennosides/Docusate Sodium TABLET PO SCH ×2 (10:08→20:17)
[2021-08-24] MEDS: Gabapentin 100 MG CAPSULE PO SCH ×3 (10:08→20:18)
[2021-08-24] MEDS: Loratadine 10 MG TABLET PO SCH (10:08)
[2021-08-24] MEDS: *HR* HYDROcodone/Acet 5/325 mg TABLET PO PRN ×2 (10:08→20:17)
[2021-08-24] MEDS: Aspirin 81 MG TAB.CHEW PO SCH (10:08)
[2021-08-24] MEDS: carvediloL 6.25 MG TABLET PO SCH ×2 (10:09→16:51)
[2021-08-24] MEDS: Apixaban 5 MG TABLET PO SCH ×2 (10:09→20:18)
[2021-08-24] MEDS: *HR* LORazepam 0.5 MG TABLET PO PRN (10:09)
[2021-08-24] MEDS: Insulin DETEMIR 100 UNIT/ML X5UNITS SUBQ SCH (10:10)
[2021-08-24] MEDS: Insulin LISPRO 300 UNITS/3 ML VIAL SUBQ SCH ×3 (10:11→16:51)
[2021-08-24] MEDS ORDERED: Bisacodyl 10 MG RECTAL SUPPOSITORY RC PRN (23:44)
[2021-08-25] MEDS: Budesonide/Formoterol 160/4.5 1 PUFF INH IH SCH ×2 (09:20→22:11)
[2021-08-25] MEDS: carvediloL 6.25 MG TABLET PO SCH ×2 (09:55→18:04)
[2021-08-25] MEDS: Aspirin 81 MG TAB.CHEW PO SCH (09:55)
[2021-08-25] MEDS: Apixaban 5 MG TABLET PO SCH ×2 (09:55→19:48)
[2021-08-25] MEDS: Sennosides/Docusate Sodium TABLET PO SCH ×2 (09:56→19:49)
[2021-08-25] MEDS: Gabapentin 100 MG CAPSULE PO SCH ×3 (09:56→19:48)
[2021-08-25] MEDS: Insulin DETEMIR 100 UNIT/ML X5UNITS SUBQ SCH (09:56)
[2021-08-25] MEDS: lisinopriL 10 MG TABLET PO SCH (09:56)
[2021-08-25] MEDS: Loratadine 10 MG TABLET PO SCH (09:56)
[2021-08-25] MEDS: Insulin LISPRO 300 UNITS/3 ML VIAL SUBQ SCH ×3 (09:57→18:04)
[2021-08-26] MEDS: Loratadine 10 MG TABLET PO SCH (08:26)
[2021-08-26] MEDS: Gabapentin 100 MG CAPSULE PO SCH ×3 (08:26→21:10)
[2021-08-26] MEDS: lisinopriL 10 MG TABLET PO SCH (08:27)
[2021-08-26] MEDS: Aspirin 81 MG TAB.CHEW PO SCH (08:27)
[2021-08-26] MEDS: Apixaban 5 MG TABLET PO SCH ×2 (08:27→21:09)
[2021-08-26] MEDS: Insulin DETEMIR 100 UNIT/ML X5UNITS SUBQ SCH (08:28)
[2021-08-26] MEDS: carvediloL 6.25 MG TABLET PO SCH ×2 (08:28→17:11)
[2021-08-26 08:29] LABS: Basophils % 0.6 %; Eosinophils # 0.2 K/mcL (0.0-0.6); Eosinophils % 2.9 %; Hematocrit 29.2 % (35.3-44.9); Hemoglobin 8.7 g/dL (11.5-15.4); Immature Granulocytes % 0.4 % (0-4); Lymphocytes % 36.7 %; Mean Corpuscular HGB Conc 29.8 g/dL (31.6-35.5); Mean Corpuscular Hemoglobin 26.9 pg (28.0-33.3); Mean Corpuscular Volume 90.4 fL (83.0-100.0); Mean Platelet Volume 9.2 fL (9.4-12.4); Monocytes # 0.5 K/mcL (0.0-1.3); Monocytes % 8.3 %; Neutrophils # 2.8 K/mcL (1.6-8.9); Platelet Count 524 K/mcL (140-400); Red Blood Count 3.23 M/mcL (3.82-4.97); Red Cell Distribution Width 16.6 % (11.5-14.5); Segmented Neutrophils % 51.1 %; White Blood Count 5.5 K/mcL (4.3-11.1)
[2021-08-26] MEDS: Insulin LISPRO 300 UNITS/3 ML VIAL SUBQ SCH ×3 (08:31→17:13)
[2021-08-26] MEDS: *HR* LORazepam 0.5 MG TABLET PO PRN (08:40)
[2021-08-26] MEDS: *HR* HYDROcodone/Acet 5/325 mg TABLET PO PRN ×2 (08:40→21:15)
[2021-08-26 08:42] LABS: BUN/Creatinine Ratio 18 (6-26); Blood Urea Nitrogen 10 mg/dL (6-20); Calcium 8.4 mg/dL (8.6-10.3); Carbon Dioxide 32 mEq/L (23-29); Chloride 101 mEq/L (98-107); Glucose 242 mg/dL (70-105); Osmolality,Calculated 293 (280-300); Potassium 3.8 mEq/L (3.5-5.1); Sodium 138 mEq/L (136-145); eGFR For African Americans > 60 (> 60); eGFR For Non-African Americans > 60 (> 60)
[2021-08-26] MEDS: Sennosides/Docusate Sodium TABLET PO SCH ×2 (08:44→21:10)
[2021-08-26] MEDS: Budesonide/Formoterol 160/4.5 1 PUFF INH IH SCH ×2 (09:36→21:45)
[2021-08-27] MEDS: carvediloL 6.25 MG TABLET PO SCH (07:39)
[2021-08-27] MEDS: Gabapentin 100 MG CAPSULE PO SCH ×3 (07:39→21:13)
[2021-08-27] MEDS: lisinopriL 10 MG TABLET PO SCH (07:40)
[2021-08-27] MEDS: Apixaban 5 MG TABLET PO SCH ×2 (07:40→21:10)
[2021-08-27] MEDS: Aspirin 81 MG TAB.CHEW PO SCH (07:40)
[2021-08-27] MEDS: Loratadine 10 MG TABLET PO SCH (08:00)
[2021-08-27] MEDS: Insulin LISPRO 300 UNITS/3 ML VIAL SUBQ SCH ×3 (08:18→19:11)
[2021-08-27] MEDS: Sennosides/Docusate Sodium TABLET PO SCH ×2 (08:41→21:09)
[2021-08-27] MEDS: Budesonide/Formoterol 160/4.5 1 PUFF INH IH SCH ×2 (09:54→22:28)
[2021-08-27] MEDS: Insulin DETEMIR 100 UNIT/ML X5UNITS SUBQ SCH (12:07)
[2021-08-27] MEDS: *HR* HYDROcodone/Acet 5/325 mg TABLET PO PRN (21:10)
[2021-08-28] MEDS: Aspirin 81 MG TAB.CHEW PO SCH (08:49)
[2021-08-28] MEDS: Sennosides/Docusate Sodium TABLET PO SCH ×2 (08:50→19:46)
[2021-08-28] MEDS: Apixaban 5 MG TABLET PO SCH ×2 (08:50→19:47)
[2021-08-28] MEDS: Loratadine 10 MG TABLET PO SCH (08:50)
[2021-08-28] MEDS: lisinopriL 10 MG TABLET PO SCH (08:51)
[2021-08-28] MEDS: Insulin DETEMIR 100 UNIT/ML X5UNITS SUBQ SCH (08:51)
[2021-08-28] MEDS: Gabapentin 100 MG CAPSULE PO SCH ×3 (08:51→19:46)
[2021-08-28] MEDS: Insulin LISPRO 300 UNITS/3 ML VIAL SUBQ SCH ×3 (08:52→16:05)
[2021-08-28] MEDS: carvediloL 6.25 MG TABLET PO SCH ×3 (08:54→16:06)
[2021-08-28] MEDS: Budesonide/Formoterol 160/4.5 1 PUFF INH IH SCH ×2 (09:35→22:43)
[2021-08-28] MEDS: *HR* HYDROcodone/Acet 5/325 mg TABLET PO PRN (19:47)
[2021-08-29] MEDS: *HR* HYDROcodone/Acet 5/325 mg TABLET PO PRN ×2 (06:39→19:52)
[2021-08-29] MEDS: Sennosides/Docusate Sodium TABLET PO SCH ×2 (07:59→19:52)
[2021-08-29] MEDS: Aspirin 81 MG TAB.CHEW PO SCH (07:59)
[2021-08-29] MEDS: Insulin LISPRO 300 UNITS/3 ML VIAL SUBQ SCH ×3 (08:00→16:56)
[2021-08-29] MEDS: carvediloL 6.25 MG TABLET PO SCH ×2 (08:00→16:52)
[2021-08-29] MEDS: lisinopriL 10 MG TABLET PO SCH (08:00)
[2021-08-29] MEDS: Apixaban 5 MG TABLET PO SCH ×2 (08:00→19:52)
[2021-08-29] MEDS: Gabapentin 100 MG CAPSULE PO SCH ×3 (08:00→19:53)
[2021-08-29] MEDS: Loratadine 10 MG TABLET PO SCH (08:00)
[2021-08-29] MEDS: Insulin DETEMIR 100 UNIT/ML X5UNITS SUBQ SCH (09:45)
[2021-08-29] MEDS: Budesonide/Formoterol 160/4.5 1 PUFF INH IH SCH ×2 (10:50→20:22)
[2021-08-29] MEDS: *HR* LORazepam 0.5 MG TABLET PO PRN (19:53)
[2021-08-30] MEDS: *HR* HYDROcodone/Acet 5/325 mg TABLET PO PRN ×2 (00:59→21:46)
[2021-08-30] MEDS: Budesonide/Formoterol 160/4.5 1 PUFF INH IH SCH ×2 (08:45→21:24)
[2021-08-30] MEDS: Insulin LISPRO 300 UNITS/3 ML VIAL SUBQ SCH ×3 (08:54→17:15)
[2021-08-30] MEDS: Aspirin 81 MG TAB.CHEW PO SCH (08:55)
[2021-08-30] MEDS: Insulin DETEMIR 100 UNIT/ML X5UNITS SUBQ SCH (08:55)
[2021-08-30] MEDS: lisinopriL 10 MG TABLET PO SCH (08:55)
[2021-08-30] MEDS: Sennosides/Docusate Sodium TABLET PO SCH ×2 (08:55→21:05)
[2021-08-30] MEDS: Gabapentin 100 MG CAPSULE PO SCH ×3 (08:56→21:05)
[2021-08-30] MEDS: Apixaban 5 MG TABLET PO SCH ×2 (08:56→21:04)
[2021-08-30] MEDS: Loratadine 10 MG TABLET PO SCH (08:56)
[2021-08-30] MEDS: carvediloL 6.25 MG TABLET PO SCH ×2 (08:56→17:15)
[2021-08-30 13:07] LABS: Hematocrit 30.6 % (35.3-44.9); Mean Corpuscular HGB Conc 29.4 g/dL (31.6-35.5); Mean Corpuscular Hemoglobin 26.7 pg (28.0-33.3); Mean Corpuscular Volume 90.8 fL (83.0-100.0); Mean Platelet Volume 8.9 fL (9.4-12.4); Platelet Count 502 K/mcL (140-400); Red Blood Count 3.37 M/mcL (3.82-4.97); Red Cell Distribution Width 16.6 % (11.5-14.5); White Blood Count 6.2 K/mcL (4.3-11.1)
[2021-08-30 13:23] LABS: BUN/Creatinine Ratio 29 (6-26); Blood Urea Nitrogen 17 mg/dL (6-20); Calcium 8.7 mg/dL (8.6-10.3); Carbon Dioxide 29 mEq/L (23-29); Chloride 104 mEq/L (98-107); Glucose 238 mg/dL (70-105); Osmolality,Calculated 299 (280-300); Potassium 3.8 mEq/L (3.5-5.1); Sodium 140 mEq/L (136-145); eGFR For African Americans > 60 (> 60); eGFR For Non-African Americans > 60 (> 60)
[2021-08-30] MEDS: *HR* LORazepam 0.5 MG TABLET PO PRN (21:06)
[2021-08-31] MEDS: Budesonide/Formoterol 160/4.5 1 PUFF INH IH SCH ×2 (07:29→22:48)
[2021-08-31] MEDS: Apixaban 5 MG TABLET PO SCH ×2 (07:38→20:28)
[2021-08-31] MEDS: lisinopriL 10 MG TABLET PO SCH (07:39)
[2021-08-31] MEDS: Loratadine 10 MG TABLET PO SCH (07:39)
[2021-08-31] MEDS: Sennosides/Docusate Sodium TABLET PO SCH ×2 (07:39→20:27)
[2021-08-31] MEDS: carvediloL 6.25 MG TABLET PO SCH ×2 (07:39→16:28)
[2021-08-31] MEDS: Insulin LISPRO 300 UNITS/3 ML VIAL SUBQ SCH ×3 (07:39→16:31)
[2021-08-31] MEDS: Aspirin 81 MG TAB.CHEW PO SCH (07:39)
[2021-08-31] MEDS: Insulin DETEMIR 100 UNIT/ML X5UNITS SUBQ SCH (09:01)
[2021-08-31] MEDS: Gabapentin 100 MG CAPSULE PO SCH ×3 (09:01→20:27)
[2021-08-31] MEDS: *HR* HYDROcodone/Acet 5/325 mg TABLET PO PRN ×2 (16:28→22:35)
[2021-09-01] MEDS: Loratadine 10 MG TABLET PO SCH (08:08)
[2021-09-01] MEDS: Apixaban 5 MG TABLET PO SCH ×2 (08:08→20:02)
[2021-09-01] MEDS: lisinopriL 10 MG TABLET PO SCH (08:09)
[2021-09-01] MEDS: carvediloL 6.25 MG TABLET PO SCH ×2 (08:09→17:04)
[2021-09-01] MEDS: Aspirin 81 MG TAB.CHEW PO SCH (08:09)
[2021-09-01] MEDS: Sennosides/Docusate Sodium TABLET PO SCH ×2 (08:09→20:01)
[2021-09-01] MEDS: Gabapentin 100 MG CAPSULE PO SCH ×3 (08:09→20:02)
[2021-09-01] MEDS: Insulin LISPRO 300 UNITS/3 ML VIAL SUBQ SCH ×3 (08:12→16:36)
[2021-09-01] MEDS: Budesonide/Formoterol 160/4.5 1 PUFF INH IH SCH ×2 (08:16→21:08)
[2021-09-01] MEDS: Insulin DETEMIR 100 UNIT/ML X5UNITS SUBQ SCH (10:00)
[2021-09-01 10:27] LABS: Bilirubin,Urine Negative (Negative); Blood,Urine Moderate (Negative); Clarity,Urine Cloudy (Clear); Color,Urine Yellow (Yellow); Glucose,Urine (UA) Normal (Normal); Ketones,Urine Negative (Negative); Leukocyte Esterase,Urine Moderate (Negative); Nitrite,Urine Negative (Negative); Protein,Urine 100 mg/dL (Neg-Trace); Specific Gravity,Urine 1.025 (1.010-1.025); Urobilinogen,Urine Normal (Normal)
[2021-09-01 11:15] LABS: Bacteria,Urine Many per hpf (None-Few); Squamous Epithelial Cell,Urine Few per hpf (None-Few); WBC,Urine TNTC per hpf (0-3)
[2021-09-01] MEDS: cefTRIAXone 2,000 MG in 0.9 % Sodium Chloride Mini Bag 100 ML IVPB SCH (13:20)
[2021-09-01] MEDS: *HR* HYDROcodone/Acet 5/325 mg TABLET PO PRN (20:01)
[2021-09-02 05:35] LABS: Hematocrit 29.3 % (35.3-44.9); Hemoglobin 8.8 g/dL (11.5-15.4); Mean Corpuscular Hemoglobin 26.9 pg (28.0-33.3); Mean Corpuscular Volume 89.6 fL (83.0-100.0); Mean Platelet Volume 8.7 fL (9.4-12.4); Platelet Count 369 K/mcL (140-400); Red Blood Count 3.27 M/mcL (3.82-4.97); Red Cell Distribution Width 16.6 % (11.5-14.5)
[2021-09-02] MEDS: Budesonide/Formoterol 160/4.5 1 PUFF INH IH SCH ×2 (08:14→21:09)
[2021-09-02] MEDS: Gabapentin 100 MG CAPSULE PO SCH ×3 (08:18→20:34)
[2021-09-02] MEDS: Apixaban 5 MG TABLET PO SCH ×2 (08:18→20:35)
[2021-09-02] MEDS: Loratadine 10 MG TABLET PO SCH (08:18)
[2021-09-02] MEDS: Sennosides/Docusate Sodium TABLET PO SCH ×2 (08:18→20:35)
[2021-09-02] MEDS: carvediloL 6.25 MG TABLET PO SCH ×2 (08:19→17:25)
[2021-09-02] MEDS: lisinopriL 10 MG TABLET PO SCH (08:19)
[2021-09-02] MEDS: Aspirin 81 MG TAB.CHEW PO SCH (08:19)
[2021-09-02] MEDS: cefTRIAXone 2,000 MG in 0.9 % Sodium Chloride Mini Bag 100 ML IVPB SCH (08:20)
[2021-09-02] MEDS: Insulin LISPRO 300 UNITS/3 ML VIAL SUBQ SCH ×3 (08:23→17:27)
[2021-09-02] MEDS: Insulin DETEMIR 100 UNIT/ML X5UNITS SUBQ SCH (10:29)
[2021-09-02 11:03] LABS: BUN/Creatinine Ratio 31 (6-26); Blood Urea Nitrogen 15 mg/dL (6-20); Calcium 8.5 mg/dL (8.6-10.3); Carbon Dioxide 27 mEq/L (23-29); Chloride 106 mEq/L (98-107); Glucose 199 mg/dL (70-105); Osmolality,Calculated 296 (280-300); Potassium 3.8 mEq/L (3.5-5.1); Sodium 140 mEq/L (136-145); eGFR For African Americans > 60 (> 60); eGFR For Non-African Americans > 60 (> 60)
[2021-09-02] MEDS: *HR* HYDROcodone/Acet 5/325 mg TABLET PO PRN (20:34)
[2021-09-03] MEDS: *HR* HYDROcodone/Acet 5/325 mg TABLET PO PRN ×2 (06:01→20:05)
[2021-09-03] MEDS: Gabapentin 100 MG CAPSULE PO SCH ×3 (08:53→20:05)
[2021-09-03] MEDS: carvediloL 6.25 MG TABLET PO SCH ×2 (08:53→15:40)
[2021-09-03] MEDS: Aspirin 81 MG TAB.CHEW PO SCH (08:53)
[2021-09-03] MEDS: Loratadine 10 MG TABLET PO SCH (08:53)
[2021-09-03] MEDS: lisinopriL 10 MG TABLET PO SCH (08:53)
[2021-09-03] MEDS: Apixaban 5 MG TABLET PO SCH ×2 (08:53→20:03)
[2021-09-03] MEDS: Insulin DETEMIR 100 UNIT/ML X5UNITS SUBQ SCH ×2 (08:53→20:03)
[2021-09-03] MEDS: cefTRIAXone 2,000 MG in 0.9 % Sodium Chloride Mini Bag 100 ML IVPB SCH (08:54)
[2021-09-03] MEDS: Insulin LISPRO 300 UNITS/3 ML VIAL SUBQ SCH ×3 (08:54→17:01)
[2021-09-03] MEDS: Sennosides/Docusate Sodium TABLET PO SCH ×2 (08:55→20:05)
[2021-09-03] MEDS: Budesonide/Formoterol 160/4.5 1 PUFF INH IH SCH ×2 (09:33→21:58)
[2021-09-04] MEDS: Sennosides/Docusate Sodium TABLET PO SCH ×2 (08:51→19:37)
[2021-09-04] MEDS: Aspirin 81 MG TAB.CHEW PO SCH (08:51)
[2021-09-04] MEDS: Apixaban 5 MG TABLET PO SCH ×2 (08:52→19:37)
[2021-09-04] MEDS: Loratadine 10 MG TABLET PO SCH (08:52)
[2021-09-04] MEDS: Gabapentin 100 MG CAPSULE PO SCH ×3 (08:52→19:36)
[2021-09-04] MEDS: carvediloL 6.25 MG TABLET PO SCH ×2 (08:52→17:33)
[2021-09-04] MEDS: lisinopriL 10 MG TABLET PO SCH (08:52)
[2021-09-04] MEDS: Insulin DETEMIR 100 UNIT/ML X5UNITS SUBQ SCH ×2 (08:53→19:37)
[2021-09-04] MEDS: Insulin LISPRO 300 UNITS/3 ML VIAL SUBQ SCH ×3 (08:53→15:58)
[2021-09-04] MEDS: Nitrofurantoin (BID) 100 MG CAPSULE PO SCH ×2 (08:58→17:34)
[2021-09-04] MEDS: Budesonide/Formoterol 160/4.5 1 PUFF INH IH SCH ×2 (09:36→21:38)
[2021-09-04] MEDS: *HR* HYDROcodone/Acet 5/325 mg TABLET PO PRN (19:36)
[2021-09-05] MEDS: Apixaban 5 MG TABLET PO SCH ×2 (07:42→21:41)
[2021-09-05] MEDS: lisinopriL 10 MG TABLET PO SCH (07:42)
[2021-09-05] MEDS: carvediloL 6.25 MG TABLET PO SCH ×2 (07:42→16:32)
[2021-09-05] MEDS: Loratadine 10 MG TABLET PO SCH (07:42)
[2021-09-05] MEDS: Aspirin 81 MG TAB.CHEW PO SCH (07:42)
[2021-09-05] MEDS: Insulin LISPRO 300 UNITS/3 ML VIAL SUBQ SCH ×3 (07:43→16:33)
[2021-09-05] MEDS: Gabapentin 100 MG CAPSULE PO SCH ×3 (07:43→21:41)
[2021-09-05] MEDS: Nitrofurantoin (BID) 100 MG CAPSULE PO SCH ×2 (07:43→16:33)
[2021-09-05] MEDS: Sennosides/Docusate Sodium TABLET PO SCH ×2 (07:45→21:43)
[2021-09-05] MEDS: Budesonide/Formoterol 160/4.5 1 PUFF INH IH SCH ×2 (08:39→21:32)
[2021-09-05] MEDS: Insulin DETEMIR 100 UNIT/ML X5UNITS SUBQ SCH ×2 (10:18→21:40)
[2021-09-05] MEDS: *HR* HYDROcodone/Acet 5/325 mg TABLET PO PRN (23:31)
[2021-09-06] MEDS: Insulin LISPRO 300 UNITS/3 ML VIAL SUBQ SCH ×3 (07:23→16:09)
[2021-09-06] MEDS: Nitrofurantoin (BID) 100 MG CAPSULE PO SCH ×2 (08:20→16:36)
[2021-09-06] MEDS: Aspirin 81 MG TAB.CHEW PO SCH (08:20)
[2021-09-06] MEDS: Gabapentin 100 MG CAPSULE PO SCH ×3 (08:21→20:50)
[2021-09-06] MEDS: carvediloL 6.25 MG TABLET PO SCH ×2 (08:21→16:36)
[2021-09-06] MEDS: Loratadine 10 MG TABLET PO SCH (08:21)
[2021-09-06] MEDS: Insulin DETEMIR 100 UNIT/ML X5UNITS SUBQ SCH ×2 (08:21→20:50)
[2021-09-06] MEDS: Apixaban 5 MG TABLET PO SCH ×2 (08:21→20:48)
[2021-09-06] MEDS: lisinopriL 10 MG TABLET PO SCH (08:21)
[2021-09-06] MEDS: Sennosides/Docusate Sodium TABLET PO SCH ×2 (08:21→20:48)
[2021-09-06] MEDS: Budesonide/Formoterol 160/4.5 1 PUFF INH IH SCH ×2 (08:53→21:51)
[2021-09-06] MEDS: *HR* HYDROcodone/Acet 5/325 mg TABLET PO PRN (20:49)
[2021-09-07] MEDS: Insulin LISPRO 300 UNITS/3 ML VIAL SUBQ SCH ×3 (07:42→16:24)
[2021-09-07] MEDS: Sennosides/Docusate Sodium TABLET PO SCH ×2 (08:00→20:51)
[2021-09-07] MEDS: lisinopriL 10 MG TABLET PO SCH (08:01)
[2021-09-07] MEDS: Nitrofurantoin (BID) 100 MG CAPSULE PO SCH ×2 (08:01→16:24)
[2021-09-07] MEDS: Loratadine 10 MG TABLET PO SCH (08:01)
[2021-09-07] MEDS: Aspirin 81 MG TAB.CHEW PO SCH (08:01)
[2021-09-07] MEDS: Gabapentin 100 MG CAPSULE PO SCH ×3 (08:01→20:51)
[2021-09-07] MEDS: carvediloL 6.25 MG TABLET PO SCH ×2 (08:01→16:24)
[2021-09-07] MEDS: Apixaban 5 MG TABLET PO SCH ×2 (08:01→20:50)
[2021-09-07] MEDS: Insulin DETEMIR 100 UNIT/ML X5UNITS SUBQ SCH ×2 (08:16→20:51)
[2021-09-07] MEDS: Budesonide/Formoterol 160/4.5 1 PUFF INH IH SCH ×2 (09:36→22:16)
[2021-09-07] MEDS: *HR* HYDROcodone/Acet 5/325 mg TABLET PO PRN (21:02)
[2021-09-08] MEDS: Insulin LISPRO 300 UNITS/3 ML VIAL SUBQ SCH ×3 (07:01→16:31)
[2021-09-08] MEDS: carvediloL 6.25 MG TABLET PO SCH ×2 (07:25→16:23)
[2021-09-08] MEDS: Loratadine 10 MG TABLET PO SCH (07:25)
[2021-09-08] MEDS: Sennosides/Docusate Sodium TABLET PO SCH ×2 (07:25→20:12)
[2021-09-08] MEDS: lisinopriL 10 MG TABLET PO SCH (07:25)
[2021-09-08] MEDS: Nitrofurantoin (BID) 100 MG CAPSULE PO SCH ×2 (07:25→16:22)
[2021-09-08] MEDS: Apixaban 5 MG TABLET PO SCH ×2 (07:25→20:12)
[2021-09-08] MEDS: Aspirin 81 MG TAB.CHEW PO SCH (07:25)
[2021-09-08] MEDS: Gabapentin 100 MG CAPSULE PO SCH ×3 (07:25→20:11)
[2021-09-08] MEDS: Insulin DETEMIR 100 UNIT/ML X5UNITS SUBQ SCH ×2 (08:46→20:13)
[2021-09-08] MEDS: Budesonide/Formoterol 160/4.5 1 PUFF INH IH SCH ×2 (09:23→21:29)
[2021-09-08] MEDS: *HR* HYDROcodone/Acet 5/325 mg TABLET PO PRN (20:12)
[2021-09-09] MEDS: Sennosides/Docusate Sodium TABLET PO SCH ×2 (08:24→21:05)
[2021-09-09] MEDS: lisinopriL 10 MG TABLET PO SCH (08:25)
[2021-09-09] MEDS: Nitrofurantoin (BID) 100 MG CAPSULE PO SCH ×2 (08:25→16:26)
[2021-09-09] MEDS: Aspirin 81 MG TAB.CHEW PO SCH (08:25)
[2021-09-09] MEDS: Gabapentin 100 MG CAPSULE PO SCH ×3 (08:25→21:04)
[2021-09-09] MEDS: Apixaban 5 MG TABLET PO SCH ×2 (08:26→21:04)
[2021-09-09] MEDS: carvediloL 6.25 MG TABLET PO SCH ×2 (08:26→16:26)
[2021-09-09] MEDS: Loratadine 10 MG TABLET PO SCH (08:26)
[2021-09-09] MEDS: Insulin LISPRO 300 UNITS/3 ML VIAL SUBQ SCH ×3 (08:27→16:18)
[2021-09-09] MEDS: Insulin DETEMIR 100 UNIT/ML X5UNITS SUBQ SCH ×2 (09:11→21:05)
[2021-09-09] MEDS: Budesonide/Formoterol 160/4.5 1 PUFF INH IH SCH ×2 (10:11→21:52)
[2021-09-09] MEDS ORDERED: polyethylene glycoL 3350 17 GM POWD.PACK PO PRN (14:03)
[2021-09-09] MEDS: *HR* HYDROcodone/Acet 5/325 mg TABLET PO PRN (21:05)
[2021-09-10 06:55] LABS: Hematocrit 34.5 % (35.3-44.9); Hemoglobin 10.2 g/dL (11.5-15.4); Mean Corpuscular HGB Conc 29.6 g/dL (31.6-35.5); Mean Corpuscular Hemoglobin 26.5 pg (28.0-33.3); Mean Corpuscular Volume 89.6 fL (83.0-100.0); Mean Platelet Volume 8.7 fL (9.4-12.4); Platelet Count 288 K/mcL (140-400); Red Blood Count 3.85 M/mcL (3.82-4.97); Red Cell Distribution Width 16.2 % (11.5-14.5); White Blood Count 5.7 K/mcL (4.3-11.1)
[2021-09-10 07:11] LABS: BUN/Creatinine Ratio 27 (6-26); Blood Urea Nitrogen 15 mg/dL (6-20); Calcium 9.3 mg/dL (8.6-10.3); Carbon Dioxide 30 mEq/L (23-29); Chloride 104 mEq/L (98-107); Glucose 107 mg/dL (70-105); Osmolality,Calculated 291 (280-300); Potassium 4.1 mEq/L (3.5-5.1); Sodium 140 mEq/L (136-145); eGFR For African Americans > 60 (> 60); eGFR For Non-African Americans > 60 (> 60)
[2021-09-10] MEDS: Insulin LISPRO 300 UNITS/3 ML VIAL SUBQ SCH ×3 (07:34→16:58)
[2021-09-10] MEDS: Apixaban 5 MG TABLET PO SCH ×2 (08:38→20:40)
[2021-09-10] MEDS: Loratadine 10 MG TABLET PO SCH (08:38)
[2021-09-10] MEDS: lisinopriL 10 MG TABLET PO SCH (08:38)
[2021-09-10] MEDS: Nitrofurantoin (BID) 100 MG CAPSULE PO SCH ×2 (08:38→16:51)
[2021-09-10] MEDS: Aspirin 81 MG TAB.CHEW PO SCH (08:38)
[2021-09-10] MEDS: Gabapentin 100 MG CAPSULE PO SCH ×3 (08:38→20:39)
[2021-09-10] MEDS: carvediloL 6.25 MG TABLET PO SCH ×2 (08:39→16:51)
[2021-09-10] MEDS: Sennosides/Docusate Sodium TABLET PO SCH ×2 (08:39→20:39)
[2021-09-10] MEDS: Insulin DETEMIR 100 UNIT/ML X5UNITS SUBQ SCH ×2 (08:47→20:48)
[2021-09-10] MEDS: Budesonide/Formoterol 160/4.5 1 PUFF INH IH SCH ×2 (09:22→22:16)
[2021-09-10] MEDS: polyethylene glycoL 3350 17 GM POWD.PACK PO SCH (10:36)
[2021-09-10] MEDS ORDERED: Methyl Salicylate/Menthol 85 APPL/85 GM TUBE TP PRN (14:30)
[2021-09-10] MEDS: *HR* HYDROcodone/Acet 5/325 mg TABLET PO PRN (20:48)
[2021-09-11] MEDS: Insulin LISPRO 300 UNITS/3 ML VIAL SUBQ SCH ×3 (08:23→17:14)
[2021-09-11] MEDS: Insulin DETEMIR 100 UNIT/ML X5UNITS SUBQ SCH ×2 (08:25→21:30)
[2021-09-11] MEDS: polyethylene glycoL 3350 17 GM POWD.PACK PO SCH (08:25)
[2021-09-11] MEDS: Apixaban 5 MG TABLET PO SCH ×2 (08:25→21:25)
[2021-09-11] MEDS: Nitrofurantoin (BID) 100 MG CAPSULE PO SCH (08:26)
[2021-09-11] MEDS: Sennosides/Docusate Sodium TABLET PO SCH ×2 (08:26→21:24)
[2021-09-11] MEDS: Aspirin 81 MG TAB.CHEW PO SCH (08:26)
[2021-09-11] MEDS: Gabapentin 100 MG CAPSULE PO SCH ×3 (08:26→21:25)
[2021-09-11] MEDS: lisinopriL 10 MG TABLET PO SCH (08:26)
[2021-09-11] MEDS: carvediloL 6.25 MG TABLET PO SCH ×2 (08:26→17:15)
[2021-09-11] MEDS: Loratadine 10 MG TABLET PO SCH (08:26)
[2021-09-11] MEDS: Budesonide/Formoterol 160/4.5 1 PUFF INH IH SCH ×2 (10:50→22:04)
[2021-09-11] MEDS: *HR* HYDROcodone/Acet 5/325 mg TABLET PO PRN (21:24)
[2021-09-12] MEDS: *HR* LORazepam 0.5 MG TABLET PO PRN (00:23)
[2021-09-12] MEDS: Sennosides/Docusate Sodium TABLET PO SCH ×2 (08:18→20:10)
[2021-09-12] MEDS: Apixaban 5 MG TABLET PO SCH ×2 (08:18→20:11)
[2021-09-12] MEDS: lisinopriL 10 MG TABLET PO SCH (08:18)
[2021-09-12] MEDS: Aspirin 81 MG TAB.CHEW PO SCH (08:18)
[2021-09-12] MEDS: carvediloL 6.25 MG TABLET PO SCH ×2 (08:18→16:42)
[2021-09-12] MEDS: Loratadine 10 MG TABLET PO SCH (08:18)
[2021-09-12] MEDS: polyethylene glycoL 3350 17 GM POWD.PACK PO SCH (08:18)
[2021-09-12] MEDS: Gabapentin 100 MG CAPSULE PO SCH ×3 (08:18→20:10)
[2021-09-12] MEDS: Insulin LISPRO 300 UNITS/3 ML VIAL SUBQ SCH ×3 (08:19→16:43)
[2021-09-12] MEDS: Budesonide/Formoterol 160/4.5 1 PUFF INH IH SCH ×2 (09:34→21:58)
[2021-09-12] MEDS: Insulin DETEMIR 100 UNIT/ML X5UNITS SUBQ SCH ×2 (10:23→20:11)
[2021-09-12] MEDS: *HR* HYDROcodone/Acet 5/325 mg TABLET PO PRN (20:15)
[2021-09-13] MEDS: Insulin LISPRO 300 UNITS/3 ML VIAL SUBQ SCH ×3 (07:27→17:12)
[2021-09-13] MEDS: Aspirin 81 MG TAB.CHEW PO SCH (09:40)
[2021-09-13] MEDS: Loratadine 10 MG TABLET PO SCH (09:40)
[2021-09-13] MEDS: carvediloL 6.25 MG TABLET PO SCH ×2 (09:40→17:14)
[2021-09-13] MEDS: Gabapentin 100 MG CAPSULE PO SCH ×3 (09:41→20:49)
[2021-09-13] MEDS: lisinopriL 10 MG TABLET PO SCH (09:42)
[2021-09-13] MEDS: Sennosides/Docusate Sodium TABLET PO SCH ×2 (09:42→20:51)
[2021-09-13] MEDS: Apixaban 5 MG TABLET PO SCH ×2 (09:42→20:50)
[2021-09-13] MEDS: polyethylene glycoL 3350 17 GM POWD.PACK PO SCH (09:42)
[2021-09-13] MEDS: Insulin DETEMIR 100 UNIT/ML X5UNITS SUBQ SCH ×2 (09:43→20:51)
[2021-09-13] MEDS: Budesonide/Formoterol 160/4.5 1 PUFF INH IH SCH ×2 (09:54→21:03)
[2021-09-13] MEDS: *HR* HYDROcodone/Acet 5/325 mg TABLET PO PRN (20:49)
[2021-09-13] MEDS: *HR* LORazepam 0.5 MG TABLET PO PRN (23:34)
[2021-09-14] MEDS: Insulin LISPRO 300 UNITS/3 ML VIAL SUBQ SCH ×3 (07:52→16:53)
[2021-09-14] MEDS: Loratadine 10 MG TABLET PO SCH (09:20)
[2021-09-14] MEDS: Gabapentin 100 MG CAPSULE PO SCH ×3 (09:20→21:04)
[2021-09-14] MEDS: polyethylene glycoL 3350 17 GM POWD.PACK PO SCH (09:20)
[2021-09-14] MEDS: Insulin DETEMIR 100 UNIT/ML X5UNITS SUBQ SCH ×2 (09:20→21:03)
[2021-09-14] MEDS: Apixaban 5 MG TABLET PO SCH ×2 (09:20→21:04)
[2021-09-14] MEDS: Sennosides/Docusate Sodium TABLET PO SCH ×2 (09:20→21:04)
[2021-09-14] MEDS: carvediloL 6.25 MG TABLET PO SCH ×2 (09:20→16:53)
[2021-09-14] MEDS: lisinopriL 10 MG TABLET PO SCH (09:20)
[2021-09-14] MEDS: Aspirin 81 MG TAB.CHEW PO SCH (09:20)
[2021-09-14] MEDS: Budesonide/Formoterol 160/4.5 1 PUFF INH IH SCH ×2 (09:52→23:00)
[2021-09-14] MEDS: *HR* HYDROcodone/Acet 5/325 mg TABLET PO PRN (21:05)
[2021-09-15] MEDS: Budesonide/Formoterol 160/4.5 1 PUFF INH IH SCH ×2 (08:55→21:56)
[2021-09-15] MEDS: Insulin LISPRO 300 UNITS/3 ML VIAL SUBQ SCH ×3 (09:10→15:53)
[2021-09-15] MEDS: Sennosides/Docusate Sodium TABLET PO SCH ×2 (09:13→20:01)
[2021-09-15] MEDS: polyethylene glycoL 3350 17 GM POWD.PACK PO SCH (09:13)
[2021-09-15] MEDS: Apixaban 5 MG TABLET PO SCH ×2 (09:13→20:00)
[2021-09-15] MEDS: Gabapentin 100 MG CAPSULE PO SCH ×3 (09:13→20:01)
[2021-09-15] MEDS: Aspirin 81 MG TAB.CHEW PO SCH (09:13)
[2021-09-15] MEDS: lisinopriL 10 MG TABLET PO SCH (09:14)
[2021-09-15] MEDS: Loratadine 10 MG TABLET PO SCH (09:14)
[2021-09-15] MEDS: carvediloL 6.25 MG TABLET PO SCH ×2 (09:14→15:53)
[2021-09-15] MEDS: Insulin DETEMIR 100 UNIT/ML X5UNITS SUBQ SCH ×2 (09:18→20:42)
[2021-09-15] MEDS: *HR* HYDROcodone/Acet 5/325 mg TABLET PO PRN (20:02)
[2021-09-15] MEDS: Ondansetron 4 MG/2 ML VIAL IVP PRN (23:01)
[2021-09-16] MEDS: Ondansetron 4 MG/2 ML VIAL IVP PRN ×2 (05:03→09:53)
[2021-09-16 06:59] LABS: Hematocrit 34.2 % (35.3-44.9); Hemoglobin 10.4 g/dL (11.5-15.4); Mean Corpuscular HGB Conc 30.4 g/dL (31.6-35.5); Mean Corpuscular Hemoglobin 26.9 pg (28.0-33.3); Mean Corpuscular Volume 88.6 fL (83.0-100.0); Mean Platelet Volume 9.4 fL (9.4-12.4); Platelet Count 223 K/mcL (140-400); Red Blood Count 3.86 M/mcL (3.82-4.97); White Blood Count 6.6 K/mcL (4.3-11.1)
[2021-09-16 07:49] LABS: BUN/Creatinine Ratio 19 (6-26); Blood Urea Nitrogen 13 mg/dL (6-20); Carbon Dioxide 29 mEq/L (23-29); Chloride 105 mEq/L (98-107); Glucose 172 mg/dL (70-105); Osmolality,Calculated 294 (280-300); Sodium 140 mEq/L (136-145); eGFR For African Americans > 60 (> 60); eGFR For Non-African Americans > 60 (> 60)
[2021-09-16] MEDS: Budesonide/Formoterol 160/4.5 1 PUFF INH IH SCH ×2 (09:41→22:21)
[2021-09-16] MEDS: Aspirin 81 MG TAB.CHEW PO SCH (09:42)
[2021-09-16] MEDS: Sennosides/Docusate Sodium TABLET PO SCH ×2 (09:42→19:47)
[2021-09-16] MEDS: Gabapentin 100 MG CAPSULE PO SCH ×3 (09:43→19:47)
[2021-09-16] MEDS: carvediloL 6.25 MG TABLET PO SCH ×2 (09:43→16:21)
[2021-09-16] MEDS: lisinopriL 10 MG TABLET PO SCH (09:43)
[2021-09-16] MEDS: Apixaban 5 MG TABLET PO SCH ×2 (09:44→19:47)
[2021-09-16] MEDS: Loratadine 10 MG TABLET PO SCH (09:44)
[2021-09-16] MEDS: polyethylene glycoL 3350 17 GM POWD.PACK PO SCH (09:45)
[2021-09-16] MEDS: Insulin LISPRO 300 UNITS/3 ML VIAL SUBQ SCH ×3 (09:46→16:21)
[2021-09-16] MEDS: Insulin DETEMIR 100 UNIT/ML X5UNITS SUBQ SCH ×2 (09:46→21:24)
[2021-09-16] MEDS ORDERED: *HR* HYDROcodone/Acet 5/325 mg TABLET PO ONE (22:56)
[2021-09-17] MEDS: Ondansetron 4 MG/2 ML VIAL IVP PRN ×3 (08:41→23:04)
[2021-09-17] MEDS: Insulin LISPRO 300 UNITS/3 ML VIAL SUBQ SCH ×3 (08:44→16:55)
[2021-09-17] MEDS: Insulin DETEMIR 100 UNIT/ML X5UNITS SUBQ SCH ×2 (09:06→22:53)
[2021-09-17] MEDS: Aspirin 81 MG TAB.CHEW PO SCH (09:07)
[2021-09-17] MEDS: lisinopriL 10 MG TABLET PO SCH (09:08)
[2021-09-17] MEDS: Gabapentin 100 MG CAPSULE PO SCH ×3 (09:08→22:53)
[2021-09-17] MEDS: Apixaban 5 MG TABLET PO SCH ×2 (09:08→22:52)
[2021-09-17] MEDS: carvediloL 6.25 MG TABLET PO SCH ×2 (09:08→16:57)
[2021-09-17] MEDS: Loratadine 10 MG TABLET PO SCH (09:08)
[2021-09-17] MEDS: Sennosides/Docusate Sodium TABLET PO SCH ×2 (09:09→22:51)
[2021-09-17] MEDS: polyethylene glycoL 3350 17 GM POWD.PACK PO SCH (09:09)
[2021-09-17] MEDS: Budesonide/Formoterol 160/4.5 1 PUFF INH IH SCH ×2 (10:08→22:31)
[2021-09-17] MEDS ORDERED: Prochlorperazine 10 MG/2 ML VIAL IVP ONE (20:16)
[2021-09-17] MEDS: *HR* LORazepam 0.5 MG TABLET PO PRN (22:53)
[2021-09-18] MEDS: Insulin LISPRO 300 UNITS/3 ML VIAL SUBQ SCH ×3 (08:34→17:10)
[2021-09-18] MEDS: Aspirin 81 MG TAB.CHEW PO SCH (08:34)
[2021-09-18] MEDS: Loratadine 10 MG TABLET PO SCH (08:34)
[2021-09-18] MEDS: Gabapentin 100 MG CAPSULE PO SCH ×3 (08:34→20:01)
[2021-09-18] MEDS: carvediloL 6.25 MG TABLET PO SCH ×2 (08:34→17:07)
[2021-09-18] MEDS: lisinopriL 10 MG TABLET PO SCH (08:34)
[2021-09-18] MEDS: Apixaban 5 MG TABLET PO SCH ×2 (08:34→20:01)
[2021-09-18] MEDS: Sennosides/Docusate Sodium TABLET PO SCH ×2 (08:35→20:00)
[2021-09-18] MEDS: polyethylene glycoL 3350 17 GM POWD.PACK PO SCH (08:35)
[2021-09-18] MEDS: Budesonide/Formoterol 160/4.5 1 PUFF INH IH SCH ×2 (09:36→21:20)
[2021-09-18] MEDS: Insulin DETEMIR 100 UNIT/ML X5UNITS SUBQ SCH ×2 (10:42→21:35)
[2021-09-19] MEDS: Budesonide/Formoterol 160/4.5 1 PUFF INH IH SCH ×2 (09:36→22:18)
[2021-09-19] MEDS: Insulin LISPRO 300 UNITS/3 ML VIAL SUBQ SCH ×3 (09:41→16:36)
[2021-09-19] MEDS: lisinopriL 10 MG TABLET PO SCH (09:49)
[2021-09-19] MEDS: Aspirin 81 MG TAB.CHEW PO SCH (09:49)
[2021-09-19] MEDS: carvediloL 6.25 MG TABLET PO SCH ×2 (09:49→16:05)
[2021-09-19] MEDS: Gabapentin 100 MG CAPSULE PO SCH ×3 (09:49→21:47)
[2021-09-19] MEDS: Loratadine 10 MG TABLET PO SCH (09:49)
[2021-09-19] MEDS: Apixaban 5 MG TABLET PO SCH ×2 (09:49→21:48)
[2021-09-19] MEDS: Sennosides/Docusate Sodium TABLET PO SCH ×2 (09:49→21:48)
[2021-09-19] MEDS: polyethylene glycoL 3350 17 GM POWD.PACK PO SCH (09:49)
[2021-09-19] MEDS: Insulin DETEMIR 100 UNIT/ML X5UNITS SUBQ SCH ×2 (09:54→21:47)
[2021-09-19] MEDS: *HR* LORazepam 0.5 MG TABLET PO PRN (21:48)
[2021-09-20 08:05] VITALS: BP 133/79; PULSE 87; RESP 16; TEMP 97.8; O2SAT 99
[2021-09-20] MEDS: Insulin DETEMIR 100 UNIT/ML X5UNITS SUBQ SCH (08:48)
[2021-09-20] MEDS: Apixaban 5 MG TABLET PO SCH (08:50)
[2021-09-20] MEDS: Sennosides/Docusate Sodium TABLET PO SCH (08:50)
[2021-09-20] MEDS: polyethylene glycoL 3350 17 GM POWD.PACK PO SCH (08:50)
[2021-09-20] MEDS: Gabapentin 100 MG CAPSULE PO SCH (08:50)
[2021-09-20] MEDS: *HR* LORazepam 0.5 MG TABLET PO PRN (08:50)
[2021-09-20] MEDS: Aspirin 81 MG TAB.CHEW PO SCH (08:50)
[2021-09-20] MEDS: lisinopriL 10 MG TABLET PO SCH (08:50)
[2021-09-20] MEDS: Loratadine 10 MG TABLET PO SCH (08:51)
[2021-09-20] MEDS: Insulin LISPRO 300 UNITS/3 ML VIAL SUBQ SCH ×2 (08:51→12:12)
[2021-09-20] MEDS: carvediloL 6.25 MG TABLET PO SCH (08:51)
[2021-09-20] MEDS: Budesonide/Formoterol 160/4.5 1 PUFF INH IH SCH (09:34)
== END 2021-09-20 13:05 | disposition home or self-care (01) | DRG 637 ==
LOC: SUATTDRO 21:30 → INPPIK 21:30
PROVIDERS: ADMIT Internal Medicine; ATTEND Family Medicine